=== PATIENT | female | born 1960 | race Caucasian/White ===

== ENCOUNTER 2021-11-25 09:21 | Emergency (ER) | payer SELFPAY ==
[2021-11-25 09:41] VITALS: BP 134/64; PULSE 72; RESP 22; TEMP 36.8; O2SAT 100; BMI 23.3
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
--- NOTE | 2021-11-25 10:43 | DI.RAD.S_ITS ---
PROCEDURE: XR CHEST 1V INDICATIONS: SOB TECHNIQUE: One view of the chest was acquired. COMPARISON: None. FINDINGS: Surgical changes and devices: None. Lungs and pleura: Trace bilateral costophrenic angle blunting. Minimal increased vascularity. Mediastinum: Mediastinal contours appear normal. Heart size is normal. Bones and chest wall: No suspicious bony lesions. Overlying soft tissues appear unremarkable. IMPRESSION: Minimal increased vascularity suggestive of edema. Trace bilateral costophrenic angle blunting, possibly related to scarring vs fluid. Dictated by: Merle Saldivar M.D. on 11/25/2021 at 11:16 Approved by: Merle Saldivar M.D. on 11/25/2021 at 11:18
--- NOTE | 2021-11-25 10:43 | DI.RAD.S_ITS ---
PROCEDURE: XR THORACIC SPINE 3V INDICATIONS: mid T spine pain after injury TECHNIQUE: 3 views of the thoracic spine were acquired. COMPARISON: None. FINDINGS: Bones: Minimal appearance of vertebral body height loss at T8 and T9 as well as T12. No priors are available for comparison. No suspicious bony lesions. 12 pairs of ribs are noted, and appear intact where visualized. Soft tissues: No paravertebral stripe thickening. IMPRESSION: Mild vertebral body height loss of indeterminate age. If concern persists for potential acute/subacute fracture, MRI may be obtained as indicated. Dictated by: Merle Saldivar M.D. on 11/25/2021 at 11:14 Approved by: Merle Saldivar M.D. on 11/25/2021 at 11:16
[2021-11-25] MEDS: HYDROCODONE/ACET 5/325 TABLET 1 TAB PO (11:26)
[2021-11-25 11:50] VITALS: BP 136/65; PULSE 72; O2SAT 100
== END 2021-11-25 11:50 | disposition home or self-care (01) ==
PROVIDERS: Emergency Provider Emergency Medicine
DX: S22.069A Unspecified fracture of T7-T8 vertebra, initial encounter for closed fracture (principal); S22.079A Unspecified fracture of T9-T10 vertebra, initial encounter for closed fracture; S22.089A Unspecified fracture of T11-T12 vertebra, initial encounter for closed fracture; W17.89XA Other fall from one level to another, initial encounter
CPT/HCPCS: 71045; 72072; 99283